=== PATIENT | female | born 1960 | race Caucasian/White ===

== ENCOUNTER 2016-11-13 15:58 | Emergency (ER) | payer SELFPAY ==
--- NOTE | 2016-11-13 16:54 | ERNOTE ---
Upper Extremity HPI - Narrative Date of Service: 11/13/16 - General Extremities Pain Location: elbow: right Time Seen by Provider: 11/13/16 16:46 Source: patient, RN notes reviewed Exam Limitations: no limitations - Immun/Allergies/Home Medications Immunizations: IMMUNIZATION HX Immunizations Up to Date Yes History of Influenza Vaccine No Hx Pneumococcal Vaccination No Allergies/Adverse Reactions: Allergies Allergy/AdvReac Type Severity Reaction Status Date / Time codeine Allergy Intermediate Verified 11/13/16 16:14 doxycycline calcium Allergy Mild Verified 11/13/16 16:14 [From Vibramycin] doxycycline hyclate Allergy Mild Verified 11/13/16 16:14 [From Vibramycin] doxycycline monohydrate Allergy Mild Verified 11/13/16 16:14 [From Vibramycin] Home Medications: HOME MEDICATIONS Naproxen Sodium [Aleve] 220 mg PO TID 11/13/16 [Last Taken Unknown] - History of Present Illness Narrative: 56 y/o female ambulatory to the ED for right elbow pain. She was carrying a 12 ft roll of carpet on her shoulder today when she dropped it, but caught it in the bend of the elbow. She felt like something tore at the time. 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 She routinely takes NSAIDS for pain. Modifying Factors - (Improves): Reports: rest Modifying Factors - (Worsens): Reports: movement Associated Symptoms: Reports: tingling. Denies: weakness, numbness distally, loss of power (rt arm) Other Injuries: Reports: none Review of Systems - Review of Systems Constitutional: Absent: recent illness, fever EYE: Present: no symptoms reported ENT: Present: no symptoms reported Respiratory: Absent: shortness of breath, cough Cardiology: Present: no symptoms reported Gastrointestinal/Abdominal: Absent: nausea, vomiting Genitourinary: Present: no symptoms reported Musculoskeletal: Present: muscle pain, joint pain. Absent: joint swelling Skin: Absent: lesions, lumps, change in color Neurological: Present: tingling. Absent: weakness, numbness Endocrine: Present: no symptoms reported Hematologic/Lymphatic: Present: no symptoms reported Psych: Present: no symptoms reported - Patient's Past Medical History Patient History - Medical: Chronic Pain, Other Patient History - Cardiac/Respiratory: Myocardial Infarction Patient History - Cancer: No Hx of Cancer Patient History - Surgical Procedures: Appendectomy, Other, Orthopedic Patient History - Other: None LMP (females 10-50): Menopausal - Social History Living Situations: home Smoking Status: Current every day smoker Alcohol Use: none Drug Use: none - Immunizations Immunizations Up to Date: Yes Hx Pneumococcal Vaccination: No History of Influenza Vaccine: No Physical Exam - Physical Exam General Appearance: Present: wd/wn, alert, no apparent distress Respiratory: Present: no respiratory distress, no accessory muscle use Cardiovascular/Chest: Present: normal peripheral pulses Peripheral Pulses: N=norm/S=strong/W=weak/B=bound/A=absent: Dorsalis-pedis (R): Strong, Dorsalis-pedis (L): Strong Extremity Exam: Present: no edema, decreased range of motion - painful - right elbow, other - tenderness over right posterior elbow - no deformity, ecchyosis or edema noted. Absent: joint redness, joint swelling Skin Exam: Present: normal color, warm/dry ED Progress - Vital Signs Patient's Vital Signs:: I have reviewed the patient's vital signs. Vital Signs: Vital Signs 11/13/16 16:09 Temperature 36.7 C Pulse Rate 87 Respiratory 16 Rate Blood Pressure 135/74 O2 Sat by Pulse 98 Oximetry - X-Ray X-Ray #1 X-Ray: elbow Interpretation: Reviewed by me X-ray Comments: Right elbow - no acute osseous abnormality - Progress/Reassessment Chief Complaint: Upper Extremity Injury/Problem Departure Clinical Impression: Elbow sprain Qualifiers: Encounter type: initial encounter Laterality: right Qualified Code(s): S53.401A - Unspecified sprain of right elbow, initial encounter - Departure Disposition: Home Follow Up Needed Condition: Good Instructions: Muscle Strain, Aghk-up-Juht Additional Instructions: JUAN ALBERTO wrap and sling as needed Continue your current medications - may also take Tylenol Follow up with orthopedics as needed Referrals: Rafal Olson MD [Staff Physician] -
--- OUTSIDE RECORDS SUMMARY | 2016-11-13 16:57 | XMS REPORT | Continuity of Care Document ---
:1960 Author Organization [facility] [place] [address] Care Team Providers Name Role Phone Unavailable Primary Care Provider Unavailable Source Comments This disclosure is being made pursuant to the [employer] program and maynot contain all information available regarding this patient.[facility] Active Allergies and Adverse Reactions Not on File Current Medications Be aware that medications may not be up to date as of this document. Alwaysverify current medications with the patient. Not on file Active Problems Not on file Social History Tobacco Use Types Packs/Day Years Used Date Current Every Day Smoker Last Filed Vital Signs Vital Sign Reading Time Taken Blood Pressure 120/80 08/25/2012 11:52 AM [employer] Pulse 80 08/25/2012 11:52 AM [employer] Temperature 36.2 C (97.1 F) 08/25/2012 11:52 AM [employer] Respiratory Rate 16 08/25/2012 11:52 AM [employer] Height 1.664 m (5' 5.5") 08/25/2012 11:52 AM [employer] Weight 57.61 kg (127 lb 0.1 oz) 08/25/2012 11:52 AM [employer] Body Mass Index 20.81 08/25/2012 11:52 AM [employer] Oxygen Saturation - - Plan of Care Health Maintenance Due Date Last Done Comments Retired-Pertussis Vaccine Adult 1981 Retired-Tetanus Vaccine Adult 1981 Pap Smear 1983 Mammogram 2002 Colonoscopy 2012 Well Adult Visit 2012 Retired-INFLUENZA VACCINE 03/26/2015 Results from Last 3 Months Not on file
--- OUTSIDE RECORDS SUMMARY | 2016-11-13 16:57 | XMS REPORT | Continuity of Care Document ---
:1960 Author Organization [facility] ([facility]) Address [address] [place] [address] Phone [phone] Care Team Providers Name Role Phone Dario HancockPrincess lord Mook Primary Care Provider [phone] Source Comments This disclosure is being made pursuant to the Care Everywhere program, applicable federal and state laws, and may not contain all informaitonavailable regarding this patient.[facility] ([facility]) Active Allergies and Adverse Reactions Allergen Noted Date Severity Reactions Comments Codeine Urticaria (Hives) Doxycycline Urticaria (Hives) Current Medications Prescription Sig. Disp. Refills Start Date End Date Status albuterol (VENTOLIN Use 2 Puffs by 1 Inhaler 1 08/13/2010 Active HFA) 90 mcg/Actuation inhalation every 4 inhaler hours as needed for Wheezing. Indications: xx cyclobenzaprine Take 1 Tab by 90 Each 11 08/13/2010 Active (FLEXERIL) 10 mg mouth 3 times tablet daily as needed for Muscle spasms. Indications: Muscle Spasm FLUoxetine (PROZAC) 40 Take 1 Cap by 30 Cap 0 08/13/2010 Active mg capsule mouth daily. Indications: lower back pain fluticasone-salmeterol Use 1 Puff by 1 Inhaler 08/13/2010 Active (ADVAIR 500-50) 500-50 inhalation daily. mcg/dose inhaler Indications: Bronchial Asthma Levalbuterol Tartrate Use 90 mcg by 1 Inhaler 11 08/13/2010 Active (XOPENEX HFA) 45 inhalation every 4 mcg/Actuation HFAA hours as needed. Indications: Bronchospasm Prevention traZODone (DESYREL) 50 Take 1 Tab by 30 Each 5 08/13/2010 Active mg tablet mouth at bedtime. Indications: Insomnia methadone (DOLOPHINE) Take 2 Tabs by 180 Tab 0 08/13/2010 Active 10 mg tablet mouth 3 times daily. 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5 35 Alcohol Use Drinks/Week oz/Week Comments No Last Filed Vital Signs Vital Sign Reading Time Taken Blood Pressure 112/78 08/13/2010 2:51 PM [employer] Pulse 64 08/13/2010 2:51 PM [employer]IER [employer] Temperature 34.8 C (94.6 F) 08/13/2010 2:51 PM [employer]IER T[employer]ER Respiratory Rate 14 08/13/2010 2:51 PM [employer]IER [employer] Height 1.66 m (5' 5.35") 11/28/2009 1:05 PM CDT Weight 55.1 kg (121 lb 7.6 oz) 08/13/2010 2:51 PM [employer]IER [employer] Body Mass Index 20 08/13/2010 2:51 PM [employer]IER [employer]ER Oxygen Saturation 98% 12/18/2009 9:08 AM CDT Plan of Care Health Maintenance Due Date Last Done Comments HCV Screening 1960 Hepatitis B Vaccine (1 of 3 - Primary 1960 Series) Tdap Vaccine 1973 MMR Vaccine 1980 Td Vaccine 1980 Pneumococcal Vaccine (1 of 1 - PPSV23) 1981 Cervical Cancer Screening 1992 Mammogram 2002 Colonoscopy 07/21/2012 Lipid Disorder Screening 12/02/2013 12/02/2008, 07/16/2008 Influenza Vaccine: Seasonal (#1) 02/24/2016 05/09/2007 Results from Last 3 Months Not on file
[2016-11-13 18:14] VITALS: BP 127/71
== END 2016-11-13 17:45 | disposition home or self-care (01) ==
LOC: ER 15:58
DX: S53.401A Unspecified sprain of right elbow, initial encounter (principal); X50.0XXA Overexertion from strenuous movement or load, initial encounter; F17.200 Nicotine dependence, unspecified, uncomplicated